=== PATIENT | female | born 1970 ===

== ENCOUNTER 2016-08-29 06:22 | Day surgery (SDC) | payer OTHER ==
[2016-08-15 14:00] VITALS: BMI 27.3
[2016-08-29] MEDS ORDERED: Bupivacaine HCl 0.25% PF (10 ml) Inj ONE (07:31)
[2016-08-29] MEDS ORDERED: Lidocaine 1% w Epi 1:100,000 Inj ONE (07:31)
[2016-08-29] MEDS ORDERED: Propofol 10 mg/ml Inj (20 ML) ONE (07:49)
[2016-08-29] MEDS ORDERED: Midazolam 2 MG/2 ML VIAL ONE (07:49)
[2016-08-29] MEDS ORDERED: Lactated Ringer's 1,000 ML IV ONE ×5 (08:20→13:00)
[2016-08-29] MEDS: ceFAZolin IV 1 gm in Dextrose 50 ML IVPB ONE ×2 (08:22→08:30)
[2016-08-29] MEDS ORDERED: DiphenhydrAMINE 50 mg/ml Inj IVP PRN (10:53)
[2016-08-29] MEDS ORDERED: Dexamethasone 4 mg/1 ml IVP PRN (10:53)
[2016-08-29] MEDS: HYDROmorphone 0.5 mg/0.5 ml ISec IVP PRN ×2 (10:56→11:21)
--- NOTE | 2016-08-29 10:58 | PCM.SURG1 ---
Surgeon's Initial Post Op Note - Surgeon's Notes Surgeon: Dr. Carrero It Compliance Manager: Dr. Cheng PGY-2, Tori Henry Type of Anesthesia: General Endo, Local Anesthesia Administered By: Dr. Naik Pre-Operative Diagnosis: Right inguinal hernia Operative Findings: see operative report Post-Operative Diagnosis: Right inguinal hernia Operation Performed: Robotic right inguinal hernia repair Specimen/Specimens Removed: lipoma Estimated Blood Loss: EBL {In ML}: 5 Blood Products Given: N/A Drains Used: No Drains Post-Op Condition: Good Date of Surgery/Procedure: 08/29/16 Time of Surgery/Procedure: 08:00
[2016-08-29] MEDS ORDERED: Lactated Ringer's 1,000 ML IV SCH (11:00)
[2016-08-29] MEDS ORDERED: Oxycodone/Acetaminophen 5/325 mg Tab PO PRN (11:06)
[2016-08-29 15:23] VITALS: RESP 16
[2016-08-29 16:11] VITALS: BP 93/52; PULSE 68; TEMP 97.7; O2SAT 96
--- NOTE | 2016-08-30 20:47 | OP ---
PROCEDURE DATE: 08/29/2016 PREOPERATIVE DIAGNOSIS: Right inguinal hernia. POSTOPERATIVE DIAGNOSIS: Right inguinal hernia with lipoma of the cord. PROCEDURE DONE: 1. Robotic right inguinal hernia repair with mesh. 2. Robotic excision of lipoma of the cord(round ligament) SURGEON: Felice Carrero MD JUICE TESTER: TAVIA Hoffman. Tori was present from the beginning to the end of the procedure, helped with the prepping and draping, placement of port, docking and undocking of the robot and closure of the wounds. ANESTHESIA: General endotracheal tube anesthesia. ESTIMATED BLOOD LOSS: Around 10 mL. DRAINS: None. PATHOLOGY: Large lipoma surrounding the round ligament was sent for pathology. COMPLICATIONS: None. INTRAOPERATIVE FINDINGS: The patient had a large lipoma of the inguinal canal surrounding the round ligament and the patient also had hernia defect. INTRAOPERATIVE STEPS: This 45-year-old female who was diagnosed with a right inguinal hernia. The patient had a visible bulge on standing and patient was symptomatic due to the pain. The patient was consented for robotic right inguinal hernia repair with the mesh, brought to the OR, placed supine on the operating table. After induction of the anesthesia, abdomen was prepped and draped in a usual sterile fashion. Supraumbilical transverse 1.5 cm incision was made after incising skin and subcutaneous tissue, the fascia was incised in the line of incision. Neal port was placed, pneumo was created. Another two 8 mm ports were placed in the right upper quadrant, left upper quadrant as well as the left upper quadrant extra 8 mm port was placed near by midline. Now the robot was brought in and the camera arm and arm 1 and 2 was docked and through the console the dissection of the peritoneum was done from right up to the midline and dissection was carried down up to the space of Retzius and the lateral to the lateral pelvic wall and the dissection was carried down to reduce the hernial sac. The patient also had a large lipoma of the round ligament and that was also reduced and excised and it was collected into the specimen bag. Now after proper dissection, the inferior epigastric artery and the round ligament was identified and the peritoneal reflection was dissected up to the iliac vessels and after that, the right anatomical mesh was implanted. After proper implantation of the mesh, the peritoneum was sutured back with a 2-0 Vicryl V-Loc suture and specimen was taken out and it was sent to the table for the pathology. Umbilical port site were closed in 2 layers, the fascia with 0 Vicryl interrupted sutures, the skin with a 4-0 Monocryl. Dry sterile dressing was applied. The patient tolerated the procedure well. Count of instruments and gauze was correct. There was no apparent complication. The patient was extubated in the OR, sent to the postanesthesia care unit in stable condition. Felice Carrero MD cc: [id number] TT: 08/30/2016 20:46:34 jn MTDD
== END 2016-08-29 16:04 | disposition home or self-care (01) ==
LOC: C.SDS 06:22
PROVIDERS: ATTEND Surgery Surgical Critical Care
DX: K40.90 Unilateral inguinal hernia, without obstruction or gangrene, not specified as recurrent (principal); D17.72 Benign lipomatous neoplasm of other genitourinary organ
CPT/HCPCS: 49650; 88302; J0690; J1170; J1885; J2250; J2405; J2704; J3010; J7120